=== PATIENT | male | born 1970 | race Caucasian/White ===

== ENCOUNTER → 2016-10-25 | Day surgery (SDC) | payer MEDICARE ==
[2016-10-25 08:07] LABS: CREATININE 0.8 mg/dL (0.7-1.2); POTASSIUM 3.7 mmol/L (3.5-5.1)
== END | disposition home or self-care (01) ==
LOC: FAS 07:07
PROVIDERS: Anesthesiology
DX: D12.4 Benign neoplasm of descending colon (principal); K29.50 Unspecified chronic gastritis without bleeding; K44.9 Diaphragmatic hernia without obstruction or gangrene; F41.9 Anxiety disorder, unspecified; K21.9 Gastro-esophageal reflux disease without esophagitis; E78.00 Pure hypercholesterolemia, unspecified; E78.5 Hyperlipidemia, unspecified; J44.9 Chronic obstructive pulmonary disease, unspecified; I10 Essential (primary) hypertension; G47.33 Obstructive sleep apnea (adult) (pediatric); F32.9 Major depressive disorder, single episode, unspecified; Z79.899 Other long term (current) drug therapy; Z90.49 Acquired absence of other specified parts of digestive tract; F17.200 Nicotine dependence, unspecified, uncomplicated; Z86.010 Personal history of colon polyps; Z88.8 Allergy status to other drugs, medicaments and biological substances
CPT/HCPCS: 36415; 80048; 88305; 88312; J2704

== ENCOUNTER 2020-11-30 14:44 | Emergency (ER) | payer MEDICARE ==
[~2020-11-30 14:44] MED LIST: IBUPROFEN800 MG PO
[2020-11-30 18:22] LABS: BASOPHIL 0.4 % (0-2); EOSINOPHIL 1.1 % (0-5); HCT 40.8 % (42.0-52.0); HGB 14.4 g/dl (13.2-18.0); LYMPHOCYTE 24.7 % (15-48); MCH 31.7 pg (25.0-31.0); MCHC 35.3 g/dL (32.0-36.0); MCV 89.9 fL (78.0-100.0); MONOCYTE 6.1 % (0-12); MPV 10.3 fL (6.0-9.5); NEUTROPHIL 67.1 % (41-80); NRBC 0; PLT 247 K/uL (150-400); RBC 4.54 M/uL (4.70-6.00); RDW 13.1 % (11.5-14.0); WBC 14.1 K/uL (4.0-10.5)
[2020-11-30 18:39] LABS: BUN/CREAT RATIO (CALC) 9.3 RATIO; CREATININE 0.75 mg/dL (0.67-1.17); POTASSIUM 3.9 mmol/L (3.5-5.1)
== END 2020-11-30 20:15 | disposition home or self-care (01) ==
LOC: FER 14:44
PROVIDERS: Nurse Practitioner Family
DX: K92.1 Melena (principal); I10 Essential (primary) hypertension; J44.9 Chronic obstructive pulmonary disease, unspecified
CPT/HCPCS: 36415; 80048; 85025; J7030; Q9967